=== PATIENT | female | born 1955 | race Caucasian/White ===

== ENCOUNTER 2022-05-04 15:07 | Outpatient (RCR) | payer MEDICARE, SELFPAY ==
--- NOTE | 2022-05-04 14:09 | PTOPEVAL1 ---
Evaluation Information Assessment Status Evaluation Diagnosis abnormal gait Onset 04/19/22 Subjective Information patient reports she is falling a lot. she reports she has been falling for about 2 years, but reports she is falling more frequently now. she reports she is fearful of falling and breaking her hip. she reports she is unsure why she is falling . she reports she does not feel off balance, but she does just fall when walking or standing. she reports she has been dragging the toe of the R foot for 2 years or more. she reports she has had an nerve conduction test, xrays, and she reports she is going to have MRI of the brain in the next few weeks. 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 Reported Pain Level Pain Score 0: Self Report Assessment PT Clinical Summary mrs. major is a 66 yo woman who presents to skilled PT services for evaluation and treatment of abnormal gait and frequent falls. she presents this date with signs and symptoms of tethered cord or other neurological related injury. she would do well to attend skilled PT to work on her balance, strength, ambulation, safety, and coordination to return to prior level safeyt and independence. Plan of Care Interventions Gait Training,Neuro Re-education,Patient/Caregiver Educati,Therapeutic Activities,Therapeutic Exercise PT Services Indicated Yes Treatment Frequency and 3x weekly for 12 visits Duration These treatments will address the objective and functional deficits as defined above. The patient will be advanced safely and appropriately in order for the patient to progress towards his/her prior level of function. Additional exercises will be introduced and as well as a comprehensive home exercise program upon discharge, if needed, ?to ensure carryover of functional gains achieved in the clinic. This treatment plan has been reviewed and agreement upon by the patient.
--- NOTE | 2022-05-24 10:37 | PTOPPROG ---
Assessment and note entered by JT File, PT Evaluation Information Assessment Status Progress Diagnosis abnormal gait Onset 04/19/22 Subjective Information patient reports she has had no falls for 2 weeks, but reports she is not fall free since beginning therapy. she reports she has recently found out she has a bleed in her brain, but reports she has a follow up with her MD to address/speak about this issue. currently her therapy is ok to continue. Assessment PT Clinical Summary mrs. major presents to skilled PT for her 10th skilled therapy visit this date. she presents with improved safety during ambulation using a FWW. however, she continues to ambulate with signifcant toe drag/poor foot clearance. she also rpesents with mild imprvement in 5x sit to stand time, but decrease in TUG time (used cane last test). she does display improved tinetti score for balance. she would do well to continue skilled PT 1x this week and then 2x weekly for 6 more visits. she would do well to consider AFO's for her ankles to increase ambulation safety and gait mechanics. Plan of Care Interventions Gait Training,Neuro Re-education,Therapeutic Activities,Therapeutic Exercise PT Services Indicated Yes Treatment Frequency and 1x more this week, then 2x weekly for 6 visits Duration beginning next week (7 more total visits) These treatments will address the objective and functional deficits as defined above. The patient will be advanced safely and appropriately in order for the patient to progress towards his/her prior level of function. Additional exercises will be introduced and as well as a comprehensive home exercise program upon discharge, if needed, ?to ensure carryover of functional gains achieved in the clinic. This treatment plan has been reviewed and agreement upon by the patient.
--- NOTE | 2022-06-17 11:45 | PTOPPROG ---
Assessment and note entered by JT File, PT Evaluation Information Assessment Status Progress Diagnosis abnormal gait Onset 04/19/22 Subjective Information patient reports she fell yesterday. she reports she was standing in the hallway and fell to the floor. she reports she was not using her walking in the home. patient is hesitant to the idea of bilateral AFO's. she was educated on the benefits of braces several times and does not want to commit to wearing them all the time or for a long period of time at this time. she reports she would like to think about it more. she reports she has not yet had her consultation on her brain bleed. she reports she is awaiting consultation on . Assessment PT Clinical Summary mrs. major presents to skilled PT services for her 17th skilled PT visit. she had a fall yesterday and continues to display deficits in safety, ambulation, and balance. despite these continued deficits and lack of progress towards goals, she will be put on hold from skilled PT at this time. she has a follow up with MD regarding a potential need for surgery on a bleed in her brain. she also has additional questions regarding braces that she would like to ask her surgeon. as of this date she is hesistant about braces and does not want to move forward on them, despite education on several visits form this therapist. she will follow up with PT after her surgeon visit on 06/28. Plan of Care Treatment Frequency and hold therapy until post follow up and guidance Duration from surgeon on 06/28/22 These treatments will address the objective and functional deficits as defined above. The patient will be advanced safely and appropriately in order for the patient to progress towards his/her prior level of function. Additional exercises will be introduced and as well as a comprehensive home exercise program upon discharge, if needed, ?to ensure carryover of functional gains achieved in the clinic. This treatment plan has been reviewed and agreement upon by the patient.
== END 2022-06-17 23:59 | disposition home or self-care (01) ==
LOC: CHSPT 15:07
DX: R26.9 Unspecified abnormalities of gait and mobility (principal)
CPT/HCPCS: 97110; 97112; 97161; 97530

== ENCOUNTER 2022-09-23 09:21 | Outpatient (RCR) | payer MEDICARE, SELFPAY ==
--- NOTE | 2022-09-23 10:14 | OTOPEVDC ---
Assessment and note entered by Radha Aleman, OT Thank you for referring Faviola Hampton to [facility].? An evaluation has been completed. No further treatment is needed. Evaluation Information Assessment Status Evaluation Diagnosis Hydrocephalus Onset 09/07/2022 Reported Pain Level Pain Score 2: Self Report Assessment OT Clinical Summary The patient is a 67 year old female who was referred to outpatient OT due to debility and hydrocephalus. 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 The patient demonstrates WFL UE strength with 5/5 muscle strength and good endurance for UE, minimally below average for fine motor coordination where patient reports she has never been coordinated and is given HEP, WFL dental assistant instructor/pinch strength and is independent with ADLs. The patient does not require skilled OT due to no significant change in UE strength, coordination, and endurance. The patient is discharged with UE HEP to maintain strength and improve fine motor coordination at home. The patient demonstrates good understanding of HEP. Plan of Care OT Services Indicated No
--- NOTE | 2022-09-30 14:09 | PTOPEVAL1 ---
Assessment and note entered by Monique London DPT Evaluation Information Assessment Status Evaluation Diagnosis s/p shunt placement on 09/07/22 Onset 09/27/22 Subjective Information Patient reports she had surgery on 09/07/[address] a shunt due to hydrocehpalus. She reports she has noticed an improvement in balance and has not had any falls. She reports she is no longer using the walker except for long distances. She reports that her walking is not how she wants it but she has noticed an improvement. Pt reports that she feels that right side is weaker. She reports she has some exercise equipment at home. She denies pain. She has follow up with anna on 10/04/22. Reported Pain Level Pain Score 0: Self Report Assessment PT Clinical Summary Patient is a 67 year old female who presents to PT s/p shunt placement due to hydrocephalus. She demonstrates decreased LE strength, impaired balance and decreased balance impairing her ability to complete house hold chores. She would benefit from skilled PT to address impairments and return to PLOF. Plan of Care Interventions Gait Training,Hot Pack/Cold Pack,Manual Therapy, Neuro Re-education,Patient/Caregiver Educati, Therapeutic Activities,Therapeutic Exercise,Self- Care/Home Management PT Services Indicated Yes Treatment Frequency and 2x weekly for 10 visits Duration These treatments will address the objective and functional deficits as defined above. The patient will be advanced safely and appropriately in order for the patient to progress towards his/her prior level of function. Additional exercises will be introduced and as well as a comprehensive home exercise program upon discharge, if needed, ?to ensure carryover of functional gains achieved in the clinic. This treatment plan has been reviewed and agreement upon by the patient.
--- NOTE | 2022-11-08 10:40 | PTOPDC ---
Assessment and note entered by Monique London DPT Evaluation Information Assessment Status Re-evaluation Diagnosis weakness, gait impairments Onset 09/27/22 Subjective Information Patient reports that her balance is a little better and her walking is a lot better . She does report she has fallen in the past week but she reports she did not have her cane or walker with her. She denies any recent pain. She reports she would like to complete her POC today and DC. Reported Pain Level Pain Score 0: Self Report Assessment PT Clinical Summary Patient was seen for 10 visits from 09/30/22-11/08/22 addressing gait and balance. Patient did make limited progress with balance testing and strengthening but continues to present as a high fall risk. She has been educated on use of FWW for home and community use but continues to only use FWW in the community despite max encouragement. She reports independence with HEP and with be discharged at this time. Plan of Care PT Services Indicated No Treatment Frequency and DC to independent HEP Duration
== END 2022-11-08 13:43 | disposition home or self-care (01) ==
LOC: CHSOT 09:21
DX: R53.81 Other malaise (principal); G91.9 Hydrocephalus, unspecified; Z98.2 Presence of cerebrospinal fluid drainage device
CPT/HCPCS: 97110; 97112; 97116; 97161; 97165; 97530; 97750

== ENCOUNTER 2022-10-13 10:48 | Emergency (ER) | payer MEDICARE, SELFPAY ==
--- NOTE | ~2022-10-13 | CT_ITS ---
EXAMINATION: CT brain wo con INDICATION: Right-sided head pain, recent shunt placement COMPARISON: None TECHNIQUE: Standard unenhanced head CT. The dose-length product (DLP) was 605.33 mGy-cm. The mA was a djusted according to patient size. Iterative reconstruction technique was employed. FINDINGS: There is no acute intraparenchymal hemorrhage. No evidence of mass lesion. No evidence of a cute infarction. There is mild periventricular and subcortical hypodensity probably related to small vessel ischemic disease. There is marked prominence of the ventricles. A ventricular shunt enters the right lateral ventricle posteriorly through the right parietal lobe and ends with its tip in the ant erior horn right lateral ventricle. There are no extra-axial collections. There is no mass effect or midline shift. The orbits and soft tissues are unremarkable. The visualized sinuses and mastoid air c ells are well aerated. IMPRESSION: 1. Hydrocephalus with ventricular shunt in the right lateral ventricle. Reviewed, dictated and finalized at location [address]. [facility] MAG[facility]RATE
--- NOTE | ~2022-10-13 | CT_ITS ---
EXAMINATION: CT abdomen pelvis wo con DATE: 10/13/2022 11:49 INDICATION: Acute left-sided abdominal pain TECHNIQUE: Computed tomography (CT) of the abdomen and pelvis was performed without intravenous contr ast. Automated exposure control and iterative reconstruction technique were employed. The dose-length product was 288.96 mGy-cm. COMPARISON: None FINDINGS: Mild atelectasis at the lingula and right middle lobe. Heart size is normal. No pericardial or pleura l effusion. Small sliding-type hiatal hernia. A few small low-attenuation hepatic cysts with smooth w ell-defined margins, the largest measuring 2.3 cm in the right hepatic lobe. Gallbladder, spleen, narayanan creas and bilateral adrenal glands are normal. Bilateral low-attenuation renal cysts measuring up to 1.7 cm in the right kidney and 12 mm in the left kidney. Bladder is distended. Uterus and bilateral a dnexa are unremarkable. No abnormal bowel wall thickening or obstruction. Likely ventriculoperitoneal shunt extending from the lower thoracic anterior chest wall into the right lower quadrant of the abd omen, extending across midline to the left lower quadrant with distal tip in the left upper quadrant. No free intraperitoneal gas or fluid. No pathologically enlarged abdominal or pelvic lymphadenopathy . Mild to moderate thoracolumbar spondylosis. IMPRESSION: 1. No acute intra-abdominal/pelvic process. 2. Distal tip of a ventriculoperitoneal shunt in the left upper quadrant. 3. Nonspecific prominent fluid distention of the bladder. Reviewed, dictated and finalized at location D. [facility]
[2022-10-13 10:48] VITALS: BP 164/89; PULSE 80; RESP 20; TEMP 37.4; O2SAT 98
--- NOTE | 2022-10-13 12:04 | ED.ABDPAIN ---
HPI - Abdominal Pain General Chief Complaint: Abdominal Pain Stated Complaint: hip apin Time Seen by Provider: 10/13/22 10:59 Source: patient Mode of arrival: ambulatory Limitations: no limitations History of Present Illness HPI narrative: this is a 67-year-old female that presents with a a dull headache and some intermittent abdominal discomfort with no nausea vomiting no fever chills no diarrhea constipation. Headache is slight in mild and was seen in physical therapy after she had a shunt placed proximally 2 to 3 weeks ago otherwise no blurry vision no nausea vomiting no fever chills has good range of motion in her neck no known injuries. The patient was brought over by Physical therapy with complaints of mild abdominal discomfort and mild headache that started while she was performing physical therapy. MD elicited complaint: abdominal pain Onset (ago): hour(s) Pain Consistency: intermittent Related Data Home Medications Medication Instructions Recorded Confirmed No Home Medications 09/15/22 10/13/22 Allergies Allergy/AdvReac Type Severity Reaction Status Date / Time No Known Allergies Verified 07/13/10 07:48 Review of Systems Review of Systems: All systems reviewed & are unremarkable except as noted in HPI and below PMFSH Past Medical History Medical History Cerebral palsy Flaccid neuropathic bladder, not elsewhere classified Hydrocephalus Hypertension Surgical History Surgical History S/P VE TEACHER shunt Social History Social History Smoking status: Former smoker Tobacco type: cigarettes Second hand tobacco smoke exposure: No Exam Const: General: healthy appearing Nutritional Appearance: well nourished Orientation/consciousness: patient oriented x3 Limitations: no limitations HENMT: Head: normal to inspection Ears: external ears normal Face/Nose/Sinus: Normal external nose present Face and sinus: normal facial exam Mouth: Yes Normal oral and palatal mucosa present Throat: posterior oropharynx normal Eyes: Conjunctivae: conjunctivae normal Pupils: Equal, round and reactive pupils present EOM: EOMs intact bilaterally Neck: Neck: normal visual inspection, no lymphadenopathy and no meningeal signs Chest: Chest palpation & inspection: normal inspection of the chest Resp: Effort & Inspection: normal respiratory effort Auscultation: clear to auscultation bilaterally Cardio: Rate: regular rate Rhythm: regular rhythm GI: GI Palp: Yes Soft to palpation Auscultation: normal bowel sounds : General: Yes bladder normal to palpation Urinary Catheter: Urinary Catheter: patent and draining Back/Spine/Pelvis: Back: no CVA tenderness Skin: General skin exam: normal color Rashes: no rashes Wounds: no wounds Neuro: General: patient oriented x3, moves all extremities, no meningeal signs and no focal motor deficits Extrem: General: normal to inspection, no clubbing, cyanosis or edema and no pedal edema Psych: Mental Status: mental status grossly normal Affect: normal affect Attitude: cooperative Course Course Emergency Course: CT scan of brain and abdomen reviewed with patient and family which shows no acute abnormalities. Vital Signs Vital signs: Vital Signs Temperature 37.4 C 10/13/22 10:48 Pulse Rate 80 10/13/22 10:48 Respiratory Rate 20 10/13/22 10:48 Blood Pressure 164/89 H 10/13/22 10:48 Pulse Oximetry 98 10/13/22 10:48 Oxygen Delivery Room Air 10/13/22 10:48 Temperature 37.4 C 10/13/22 10:48 Pulse Rate 80 10/13/22 10:48 Respiratory Rate 20 10/13/22 10:48 Blood Pressure 164/89 H 10/13/22 10:48 Pulse Oximetry 98 10/13/22 10:48 Oxygen Delivery Room Air 10/13/22 10:48 MDM - Abdominal Pain Imaging Data Radiologist's impression: ITS Impressions Head CT
[2022-10-13 12:11] VITALS: BP 140/66; PULSE 70; RESP 20; TEMP 37.1; O2SAT 97
== END 2022-10-13 12:15 | disposition home or self-care (01) ==
PROVIDERS: Emergency Provider Emergency Medicine
DX: R10.9 Unspecified abdominal pain (principal); R51.9 Headache, unspecified; G80.9 Cerebral palsy, unspecified; I10 Essential (primary) hypertension; Z87.891 Personal history of nicotine dependence; Z98.2 Presence of cerebrospinal fluid drainage device
CPT/HCPCS: 70450; 74176; 99284

== ENCOUNTER 2024-10-28 13:24 | Outpatient (CLI) | payer MEDICARE, SELFPAY | END 2024-10-28 13:25 | disposition home or self-care (01) | LOC: CHSIMG 13:26 | PROVIDERS: PCP Family Medicine; Visit Provider Family Medicine | DX: Z12.31 Encounter for screening mammogram for malignant neoplasm of breast (principal); R92.8 Other abnormal and inconclusive findings on diagnostic imaging of breast | CPT/HCPCS: 77063; 77067 ==

== ENCOUNTER 2024-12-17 09:20 | Outpatient (CLI) | payer MEDICARE, OTHER, SELFPAY ==
--- NOTE | ~2024-12-17 | MMUS_ITS ---
EXAMINATION: MM diagnostic vera RT w fuentes, US breast RT limited HISTORY: Follow-up right breast asymmetry TECHNIQUE: Additional 3-D tomosynthesis images of the right breast were performed and synthetic 2-D i mages were generated. CAD analysis was submitted and interpreted. High resolution Limited right breas t ultrasound was performed. COMPARISON: 10/28/2024 BREAST PARENCHYMAL COMPOSITION: Not dense: There are scattered areas of fibroglandular density. FINDINGS: MAMMOGRAPHIC FINDINGS: The asymmetry laterally in the right breast on CC view is not visualized with spot compression view. There are no suspicious masses, calcifications or architectural distortion. ULTRASOUND: Limited right breast ultrasound: There are no suspicious masses, cysts or other abnormality to sugges t malignancy. IMPRESSION: 1. No evidence for malignancy in the right breast. 2. Routine yearly screening mammogram and regular clinical breast examination are recommended. BI-RADS Category 1: Negative Reviewed, dictated and finalized at location A. IMPRESSION: 1. No evidence for malignancy in the right breast. 2. Routine yearly screening mammogram and regular clinical breast examination a re recommended. BI-RADS Category 1: Negative
--- OUTSIDE RECORDS SUMMARY | 2024-12-17 10:21 | XMS_ITS | Encounter Summary ---
Author Organization [facility] Health Address [address] [place] [address] Care Team Providers Care Unix System Administrator Name Role Phone Domingo Hebert MD Primary Care Provider [phone] Encounter Details Date Type Department Care Team (Late st Contact Info) Description 09/09/2024 Telephone [facility] - Family Medicine [address] [place] [address], [facility] [place] [id number] Domingo Hebert MD [address] [place] [address] [place] [id number] Social History Tobacco Use Types Packs/Day Years Used Date Smoking Tobacco: Former Cigarettes Smokeless Tobacco: Never Alcohol Use Standard Drinks/Week Comments No 0 (1 standard drink = 0.6 oz pur e alcohol) PHQ-2 Answer Date Recorded Patient Health Questionnaire-2 Score 0 08/16/2024 Comments No Sex and Gender Information Value Date Recorded Sex Assigned at Not on file Legal Sex Female 5:30 PM 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 Domingo Hebert Reason for Call: Mr. Dylan Hampton was returning a call from the office for his , Faviola Hampton. He was unsure of message and I did not see anything in her chart. Please call on his phone, . After looking at his chart and asking him a question, he says he has three referrals from Dr. Hebert from the 08/16/24 appt so they can be done on the [place] side. Maybe no reason to call, referrals were mailed to him. Thanks. Patient Call Back Number: [phone] TOR SERVICES COORDINATOR documented in this encounter Plan of Treatment Not on file documented as of this encounter Visit Diagnoses Not on filedocumented in this encounter Care Teams Unix System Administrator Relationship Specialty Start Date End Date Domingo Hebert MD PCP - General 05/28/19 documented as of this encounter
--- OUTSIDE RECORDS SUMMARY | 2024-12-17 10:21 | XMS_ITS | Data Portability ---
Author Organization [facility] [place] Address [address] [place] [address] Care Team Providers Care Clarity Specialists Name Role Phone YAAKOV OSULLIVAN Primary Care Provider [phone] Assessment Encounter Date Assessment Date Assessment LastModified by Organization Details LastModified Time 07/13/2020 07/13/2020 Annual gynecological exam performed. Patient will come back in a year unless there are new symptoms. [email or web address] Not available 07/13/2020 11:16:39 02/03/2022 02/03/2022 Annual gynecological exam performed. Patient will come back in a year unless there are new symptoms. Not available 02/03/2022 10:46:39 Plan of Treatment Reminders Order Date Submit Date Provider Last Modified By Organization Details Last Modified Time Details Appointments None recorded. Lab None recorded. Referral None recorded. Procedures None recorded. Surgeries None recorded. Imaging DEXA, axial skeleton + vertebral fracture assessment 2021 022 [email or web address] [facility], [address] [place] [address] [place], [address], 12:37:05 Medication Orders None recorded. Patient TargetsNo targets recorded. Patient InstructionsNo instructions recorded. Reason for Referral None Reported. Results Created Date Observation Date Name Description Value Unit Range Abnormal Flag Note LastModifiedBy Organization Detail LastModifiedTime 07/13/2007/16/2020 pap, LB Pap test thin prep Negati ve for Intrae pithel ial Lesion or Malign carroll normal ACCES JOAN #: [id number] Sourc e: Cervi krissy/E ndoce rvica l LMP: 08/28 Date Taken : 07/13 Speci men Type: ThinP rep Vial Date Repor terri: 07/16 Clini krissy Data: Cytot ech: Maira in Judy Deleon , CT( CP) Date Repor terri: 07/14 Speci men Adequ acy: Satis facto ry for evalu ation Gener al Categ oriza tion: NEGAT MARYANNE FOR INTRA EPITH ELIAL LESIO N OR MALIG NORAH Inter preta tion/ Resul t: Atrop hy This speci men has been neha zed by the ThinP rep Imagi ng Syste m, an inter activ e compu ter syste m which sheyla ts the lab in the scree mariya of ThinP rep Pap Test slide s. Follo wing imagi ng, the slide was revie wed by a Cytot pratibhano logis t and/o r Patho logis t. D N A A S S A Y S R E P O R T TEST NAME RESUL TS ----- ---- ----- -- HPV High Risk Scree n (TMA) ThinP rep Vial The human papil lomav irus (HPV) High Risk Scree n is an FDA-a pprov ed in-vi tro ampli fied nucle ic acid test for the quali tativ e detec tion of E6/E7 viral mRNA. Resul ts shoul d be corre lated with patie nt prese ntati on, histo ry, cervi krissy cytol ogy and other clini krissy and labor atory findi ngs. See https ://[employer]/s ites/ defau lt/fi les/2 018-0 3/AW- 33074 _002_ 01.pd f for furth er infor matceleste n. Test perfo rmed by [facility], d/b/a Talon smith, [address], [place] [address] , Emiliana White ra, DO, Labor atory Dire tor. HPV High Risk *HPV NOT DETEC TERRI (TYPE S 16, 18, 31, 33, 35, 39, 45, 51, 52, 56, 58, 59, 66, 68) *HPV: The human papil lomav irus (HPV) High Risk Aurora garcia is an FDA-a pprov ed in-vi tro ampli fied nucle ic acid test for the quali tativ e detec tion of E6/E7 viral mRNA. Resul ts shoul d be corre lated with patie nt prese ntati on, histo ry, cervi krissy cytol ogy and other clini krissy and labor atory findi ngs. See https ://[employer]/s ites/ defau lt/fi les/2 018-0 3/AW- 35054 _002_ 01.pd f for furanders er infor saturninoceleste n. Test perfo rmed by [facility], d/b/a [facility], [address], [place] [address] , Emiliana White ra, DO, Labor atorGreenSand Direc tor. End of Repor t Techn ical servi lucy provi ded by [facility], d/b/[facility], [address] [place] [address] Dnaial Collins MD, [facility] kSARIA Dire tor. Case revie wed and diagn osis rende red at [facility], d/b/[facility], [address] [place] [address] Danial Clolins MD, Labor kSARIA Dire tor. CONFI DENTI AL Not Available [facility] ([facility]) [address], [place], [address], 2020 08:34:40 07/13/20 20 2020 HPV DNA, high- risk HPV high risk NOT DETECT ED normal Not Available [facility] ([employer] [facility]) [address], [place], [address], 2020 08:34:41 07/29/20 20 07/29/2020 MAMMO , scree mariya, bilat eral No observ ation record ed. [facility] [address] [place], [address], 08/02/2020 20:32:36 Result Notes None recorded. 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 2 17:34:36 Feeling irritable [id number] Completed 201002/02/2022 IRRITABIL ITY;Pract ice ID: [id number] [facility] 2 17:34:36 Problem Notes None recorded. Procedures Surgical History Date Name Laterality Status Provider Name and Address Organization Details Recorded Time 0 Date of Last Mammogram completed [facility] 02/03/2022 10:48:42 0 Date of Last Pap Smear completed [facility] 02/03/2022 10:48:14 Imaging Results Imaging Date Name Status LastModified by Organiz ation Details LastModified Time 07/29/2020 MAMMO, screening, bilateral completed [facility] [address] [place], [address], 08/02/2020 20:32:36 Procedure Notes None recorded. Medical Equipment None Reported. Allergies No known drug allergies Medications Name Sig Start Date Stop Date Status Note LastModified by Organization Details LastModified Time hydrochlo rothiazid e 12.5 mg capsule take 2 capsule by oral route every day 01/23 completed Prescrib ed Elsewher e: Yes Loca tion: [facility] M odify By: dmrose E ncounter DateTime : 06/13/20 11 06:48:39 PM Not Available Not Available Not Available Wellbutri n XL 150 mg 24 hr tablet, extended release take 1 tablet (150MG) by oral route every day 01/23 completed Prescrib ed Elsewher e: No Locat ion: [facility] odify By: mervin Coleman ncounter DateTime : 06/13/20 11 06:48:39 PM Not Available Not Available Not Available baclofen 02/03 completed Not Available Not Available Not Available levetirac etam 1,000 mg tablet active Not Available Not Available Not Available baclofen 5 mg tablet take 1 tablet by oral route 3 times every day 02/03 completed Prescrib ed Elsewher e: Yes Loca tion: [facility] odify By: mervin Coleman ncounter DateTime : 01/24/20 19 01:00:00 PM Not Available Not Available Not Available Fluzone Quad (PF) 60 mcg (15 mcg x 4)/0.5 mL IM syringe ADM 0.5ML IM UTD 02/03 completed Not Available Not Available Not Available Vitals Date Recorded Body height Body mass index (BMI) Body weight Systolic blood pressure Diastolic blood pressure Provider Name and Address Organization Details Last Updated DateTime 02/03/2022 149.86 cm 27.3 kg/m2 38136.97 g 126 mm[Hg] 70 mm[Hg] Chinyere Brian [facility] 2 10:47:44 Date Recorded Body height Body mass index (BMI) Body weight Provider Name and Address Organization Details Last Updated DateTime 07/13/2020 152.4 cm 25.8 kg/m2 05160.19 g Lorri Trevizo [facility] 07/13/2020 11:27:38 Date Recorded Systolic blood pressure Diastolic blood pressure Provider Name and Address Organization Details Last Updated DateTime 07/13/2020 144 mm[Hg] 76 mm[Hg] Brenda Weber, [facility]- [address], [place], [address], [facility] 07/13/2020 11:41:00 Social History Question Answer Notes LastModified by Organizat ion Details LastModified Time Tobacco Smoking Status Never Smoker Cihnyere Brian [facility] 02/03/2022 10:51:50 What Is Your Level Of Alcohol Consumption? Occasional Information not available 02/03/2022 Are You Blind Or Do You Have Difficulty Seeing? No Information n ot available 02/03/2022 What Is Your Level Of Caffeine Consumption? Occasional Information not available 02/03/2022 In The 14 Days Before Symptom Onset, Have You Had Close Contact With A Laboratory-confirm ed COVID-19 While That Case Was Ill? No Information n ot available 03/19/2024 In The 14 Days Before Symptom Onset, Have You Had Close Contact With A Person Who Is Under Investigation For COVID-19 While That Person Was Ill? No Information not available 03/19/2024 Have You Been To An Area Known To Be High Risk For COVID-19? No Information not available 03/19/2024 Are You Deaf Or Do You Have Serious Difficulty Hearing? No Information not available 02/03/2022 What Type Of Diet Are You Following? REGULAR Information n ot available 02/03/2022 Do You Use Your Seat Belt Or Car Seat Routinely? Yes Information not available 02/03/2022 Do You Have Smoke And Carbon Monoxide Detectors In Your Home? Yes Information not available 02/03/2022 Do You Feel Stressed (tense, Restless, Nervous, Or Anxious, Or Unable To Sleep At Night)? [id number] Information not available 02/03/2022 Do You Use Any Illicit Or Recreational Drugs? No Information not available 02/03/2022 Do You Use Sunscreen Routinely? Yes Information not available 02/03/2022 Sex: Unknown Functional Status Question Answer Note LastModified by Organizat ion Details LastModified Time Do you have difficulty walking or climbing stairs? No Information not available 02/03/2022 Are you able to walk? YESWOREST Information not available 02/03/2022 Are you able to care for yourself? Yes Information not available 02/03/2022 Do you have difficulty dressing or bathing? No Information not available 02/03/2022 What is your exercise level? Occasional Information not available 02/03/2022 Mental Status None recorded. Family History Relationship Description Onset Age of this Age Resolved Age Notes LastModified by Organization Details LastModified Time Father Leukemia Not available 0 02/03/2022 10:51:00 Maternal Grandfather Leukemia Not available 02/03 10:51:06 Mother Hypertensive disorder Not available 2021 10:51:16 Sister Hypertensive disorder Not available 2021 10:51:16 Medical History Condition Response Neurologic/Epilepsy Y Gynecological History Statement/Question Response Abnormal Pap Yes Date of Last Mammogram 07/29/2020 On BCP's at Conception? N STIs/STDs N HPV Vaccine N Colposcopy Current Control Method Menopause If Post Menopausal, Age at Menopause 50 Sexually Active? N Age of first menstrual cycle 13 Date of Last Pap Smear 07/13/2020 Sexual Problems? N LMP Approximate Obstetrics History GPAL:G 3 P 0 0 0 3 Type Value Living 3 Total 3 Past Encounters Encounter ID Performer Location Encounter Start Date Encounter Closed Date Diagnosis/Indication Diagnosis SNOMED-CT Code Diagnosis ICD10 Code Diagnosis Note [id number] [facility] [address] [address] 07/13/2020 11:13:20 07/13/2020 13:39:16 Gynecologic examination 38308624 Z01.419 Take Calcium with Vitamin D 12-1500mg daily. Do monthly self breast exams. It is advised to get annual flu shot in the fall and she could obtain at [facility] or [facility] clinic. If you haven't received the Tdap vaccine in the last 10 years you should obtain one as well. Have mammogram yearly, bone density every 2-3 years and colonoscop y every 5-10 years depending on findings and history. Engage in daily exercise of low impact aerobic exercise 45-60 minutes 4-5 times weekly. Avoid tobacco and illicit drugs as well as using moderation with alcohol intake less than 1-2 8 oz beverages daily. This lifestyle behavior pattern will lead to less health conditions and longer life span. If BMI greater than 25 weight watchers or dietary consult advised. Questions have been answered. Patient appears to understand instructio ns, but if you have any further questions call or respond to this email Pap/hpv updated Reports wnl pap/hpv hx Monogamous x 41yrs Declines std screening Mammo ordered Reports UTD colonoscop y/dexa with PCP If pap/hpv this year is wnl consider d/c pap/hpv unless otherwise indicated. USPSTF recommends against screening for cervical cancer in women older than 65yo who have had adequate prior screening & are not otherwise at high risk for cervical cancer. Requested she contact her PCP for asymptomat ic elevated BP. [id number] Brenda Weber , [facility] [address] [address] 02/03/2022 10:13:11 02/03/2022 12:02:36 Gynecologic examination 49621594 Z01.419 Take Calcium with Vitamin D 12-1500mg daily. Do monthly self breast exams. It is advised to get annual flu shot in the fall and she could obtain at [facility] or [facility] care clinic. If you haven't received the Tdap vaccine in the last 10 years you should obtain one as well. Have mammogram yearly, bone density every 2-3 years and colonoscop y every 5-10 years depending on findings and history. Engage in daily exercise of low impact aerobic exercise 45-60 minutes 4-5 times weekly. Avoid tobacco and illicit drugs as well as using moderation with alcohol intake less than 1-2 8 oz beverages daily. This lifestyle behavior pattern will lead to less health conditions and longer life span. If BMI greater than 25 weight watchers or dietary consult advised. Questions have been answered. Patient appears to understand instructio ns, but if you have any further questions call or respond to this email Pap/hpv USPSTF recommends against screening for cervical cancer in women older than 65yo, those who've had a hysterecto my for non-cancer indication s, & who have had adequate prior screening & are not otherwise at high risk for cervical cancer. STD Screen declined Genetic Screen discussed declined Colon Screen UTD PCP Dexa Screen Ordered Routine Labs UTD PCPMammo ordered Postmenopa usal osteopenia [id number] M85.80 Health Concerns Section Related Observation LastModified by Organization Detai ls LastModified Time None Recorded Concern Status LastModified by Organization Details LastModified Time None Recorded Advance Directives Directive None Recorded Payers Encounter Date Sequence Insurance Name Policy Number Policy Peng Covered Member ID Peng Member ID Guarantor Name 07/13/2020 1 [place] Faviola Hampton [id number] 07/13/2020 2 [employer] - [place] - [place]ERS & PIPEFITTERS LOCAL [id number] (PPO) [id number] Faviola Hampton [id number] 02/03/2022 1 [place] Favioal Hampton [id number] 02/03/2022 2 [employer] - [place] - [employer]UM[employer]ERS & PIPEFITTERS LOCAL 421 (PPO) [id number] Faviola Hampton [id number] Notes Date Note Type Note Provider Name and Address Organization Details Recorded Time 07/13/2020 text/html Annual GYNReport ed bypatient.History: no gynecologic complaints Menstrual cycle:postmenopaus e Urinary symptoms:No hematuria; No incontinence Vulva:No genital lesion Vagina:Normal vaginal discharge Breast:No breast pain; No breast lump; No nipple discharge Current Contraception:Candler gamous relationship; Not sexually active; x 41yrs Sexual complaints:No sexual complaints; No pain during intercourse; Normal libido Menopausal Symptoms:No menopausal symptoms; Normal vaginal lubrication Psychological symptoms:No depression; No anxiety; No PMDD Preventive measures:Encourage self breast examination; Encourage regular exercise; Encourage no tobacco use; Encourage regular mammograms starting age 40; Needs to schedule mammogram; Up to date on colonoscopy screening; Dexa per PCP Brenda Weber DARIELA- [address], [place], [address], [facility] 07/13/2020 11:42:08 02/03/2022 text/html Annual Layer Up Post-MenopausalRep orted bypatient.Menopaus al Symptoms:no menopausal symptoms; normal vaginal lubrication Vaginal Bleeding:history of menopause having occurred; no history of post menopausal bleeding Urinary Symptoms:no hematuria; no incontinence; no nocturia; no urinary frequency Vulva:no genital lesion; no vulvar atrophy Vagina:normal vaginal discharge; no vaginal atrophy Breast:no breast lump; no nipple discharge; no breast pain Sexual Complaints:no sexual complaints Psychological Symptoms:no depression; no anxiety Preventive Measures:encourage regular mammograms starting age 40; encourage self breast examination; encourage regular exercise; encourage no tobacco use; mammogram performed within the past year; history of recent colonoscopy; needs to schedule bone density LORNA Santana- [address], [place], [address], [facility] 02/03/2022 11:57:41 OBGyn Episode Ob Episode Information Episode Created Date Number of Fetuses Patient Bloodtype Patient rh Status Prepregnancy Weight lbs Domestic Partner Domestic Partner Phone Father Name Compensation/Benefits Specialist Status 02/04/20 22 1 CLOSED Fetus Data First Name Last Name Admitted to NICU Weight (g) Sex Living Outcome Pediatric Complications Fetus ID Race Codes Race Delivery Type [id number] Vaginal Delivery Richard Calculation Initial Richard Date Initial Exam Date Initial Exam Provider Initial Ultrasound Date Last Menstrual Period Date Ultra Sound Weeks Gestation 0 Eighteen To Twenty Week Richard Update Ultra Sound Date Fundal Height At Umbil Quickening Date Ultra Sound Latest Weeks Gestation Final Richard Confirmed By Final Richard Confirmed Date Final Richard Date Ultra Sound Latest Days Gestation 0 0 Menstrual History Last Menstrual Date Menses Monthly On Bcp Conception Prior Menses Frequency Hcg Plus Date Menarche Onset Age Delivery Information Delivery Date Delivery Type Labor Anesthesia Weeks Gestation Incision Type Labor Labor Length Hrs Delivered By Post Complications Tubal Sterilization Discharge Date Comments 7 Discharge Information Feeding Method Contraceptive Method Maternal HG B and HCT Levels Ob Episode Information Episode Created Date Number of Fetuses Patient Bloodtype Patient rh Status Prepregnancy Weight lbs Domestic Partner Domestic Partner Phone Father Name Compensation/Benefits Specialist Status 02/04/20 22 1 CLOSED Fetus Data First Name Last Name Admitted to NICU Weight (g) Sex Living Outcome Pediatric Complications Fetus ID Race Codes Race Delivery Type , Spontane ous [id number] Richard Calculation Initial Richard Date Initial Exam Date Initial Exam Provider Initial Ultrasound Date Last Menstrual Period Date Ultra Sound Weeks Gestation 0 Eighteen To Twenty Week Richard Update Ultra Sound Date Fundal Height At Umbil Quickening Date Ultra Sound Latest Weeks Gestation Final Richard Confirmed By Final Richard Confirmed Date Final Richard Date Ultra Sound Latest Days Gestation 0 0 Menstrual History Last Menstrual Date Menses Monthly On Bcp Conception Prior Menses Frequency Hcg Plus Date Menarche Onset Age Delivery Information Delivery Date Delivery Type Labor Anesthesia Weeks Gestation Incision Type Labor Labor Length Hrs Delivered By Post Complications Tubal Sterilization Discharge Date Comments 5 Discharge Information Feeding Method Contraceptive Method Maternal HG B and HCT Levels Ob Episode Information Episode Created Date Number of Fetuses Patient Bloodtype Patient rh Status Prepregnancy Weight lbs Domestic Partner Domestic Partner Phone Father Name Compensation/Benefits Specialist Status 02/04/20 22 1 CLOSED Fetus Data First Name Last Name Admitted to NICU Weight (g) Sex Living Outcome Pediatric Complications Fetus ID Race Codes Race Delivery Type F [id number] Vaginal Delivery Richard Calculation Initial Richard Date Initial Exam Date Initial Exam Provider Initial Ultrasound Date Last Menstrual Period Date Ultra Sound Weeks Gestation 0 Eighteen To Twenty Week Richard Update Ultra Sound Date Fundal Height At Umbil Quickening Date Ultra Sound Latest Weeks Gestation Final Richard Confirmed By Final Richard Confirmed Date Final Richard Date Ultra Sound Latest Days Gestation 0 0 Menstrual History Last Menstrual Date Menses Monthly On Bcp Conception Prior Menses Frequency Hcg Plus Date Menarche Onset Age Delivery Information Delivery Date Delivery Type Labor Anesthesia Weeks Gestation Incision Type Labor Labor Length Hrs Delivered By Post Complications Tubal Sterilization Discharge Date Comments 9 Discharge Information Feeding Method Contraceptive Method Maternal HG B and HCT Levels
--- OUTSIDE RECORDS SUMMARY | 2024-12-17 10:21 | XMS_ITS | Encounter Summary ---
Author Organization [facility] Address [address] [place] [address] Care Team Providers Care Certified Medical Dosimetrist Name Role Phone Domingo Hebert MD Primary Care Provider [phone] Reason for Visit * Reason Onset Date Comments MEDICATION REFILL 01/07/2022 Encounter Details Date Type Department Care Team (Late st Contact Info) Description 01/07/2022 Refill [facility] [address] [place] [address] [phone] Domingo Hebert MD [address] [place] [phone] MEDICATION REFILL Social History Tobacco Use Types Packs/Day Years Used Date Smoking Tobacco: Former Cigarettes Smokeless Tobacco: Never Alcohol Use Standard Drinks/Week Comments No 0 (1 standard drink = 0.6 oz pur e alcohol) PHQ-2 Answer Date Recorded PHQ2 TOTAL SCORE 0 08/05/2021 Comments No Sex and Gender Information Value Date Recorded Sex Assigned at Not on file 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
--- OUTSIDE RECORDS SUMMARY | 2024-12-17 10:21 | XMS_ITS | Clinical Summary ---
Author Organization [facility] [employer] Address [address] [place] [address] Care Team Providers Care Police Patrol Lieutenant Name Role Phone Domingo Hebert MD Primary Care Provider [phone]- [phone] Source Comments [facility] [employer],non-owned Affiliates and Associated Physician Practices is amultiple site organization consisting of ambulatory clinics and hospital sitesin [place], [place], [place] and [place]. This disclosure is being madepursuant to the Care Everywhere program and may not contain all information available regarding this patient. Last updated 18.[facility] [employer] Allergies No known active allergies Medications * Be aware that medications may not be up to date on this document. Alwaysverify current medications with the patient. 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 [place] [phone] Domingo Hebert MD Order from Last 3 Months Immunizations Immunization Administration Dates Next Due INFLUENZA VACCINE, TRIV. (AF LURIA, FLUZONE TRIVALENT; 6MO+) (IIV3) 06/05/2013,08/04/2012,05/28/2011 Covid Moderna primary monova lent 12+ yr 0.5mL 06/26/2021,11/17/2020,10/08/2020 FLU VACCINE TRI IIV3 SPLIT PF IM (FLUVIRIN) 04/28 INFLUENZA VACCINE 06/03/2015 INFLUENZA VACCINE, ADJUVANTE D, QUADR. (FLUAD QUADRIVALENT; 65Y+) (AIIV4) 06/05/2023 INFLUENZA VACCINE, QUADR. (F LUZONE; FLULAVAL; FLUARIX; AFLURIA QUADRIVALENT; 6MO+), 0.5 ML (IIV4) 07/01/2020,06/19/2018 TDAP (7yrs+) 02/16/2017 ZOSTER VACCINE, LIVE 02/16/2017 Zoster Hzv Vacc Recombinant Inj Im 07/28/2017 iNFLUENZA VACCINE, RECOM-PATINO, QUADR. (FLUBLOCK QUADRIVALENT; 18Y+) (RIV4) 05/28/2019 Family History Medical History Relation Name Comments Aneurysm, Brain Father CVA Mother Hypertension Mother Status: d Relation Name Status Comments Father Mother Social History Tobacco Use Types Packs/Day Years Used Date Smoking Tobacco: Former Cigarettes Smokeless Tobacco: Never Tobacco Cessation:Counseling Given: Not Answered Alcohol Use Standard Drinks/Week Comments No 0 (1 standard drink = 0.6 oz pur e alcohol) PHQ-2 Answer Date Recorded Patient Health Questionnaire-2 Score 0 08/16/2024 Comments No Sex and Gender Information Value Date Recorded Sex Assigned at Not on file Legal Sex Female 5:30 PM TOMATO PULPER OPERATOR Gender Identity Not on file Sexual Orientation Not on file Last Filed Vital Signs Vital Sign Reading Time Taken Comments Blood Pressure 140/85 08/16/2024 10:37 AM TOMATO PULPER OPERATOR Pulse 89 08/16/2024 10:37 AM TOMATO PULPER OPERATOR Temperature 36.4 C (97.5 F) 06/05/2023 1:16 PM CDT Respiratory Rate - - Oxygen Saturation 98% 08/16/2024 10:37 AM TOMATO PULPER OPERATOR Inhaled Oxygen Concentration - - Weight 59.9 kg (132 lb) 08/16/2024 10:37 AM TOMATO PULPER OPERATOR Height 149.9 cm (4' 11 ) 06/05/2023 1:16 PM CDT Body Mass Index 26.66 06/05/2023 1:16 PM CDT Plan of Treatment Health Maintenance Due Date Last Done Comments BONE DENSITY TESTING 1955 COLOGUARD (AGES 45-75) - COLON CA SCREENING [address] COLONOGRAPHY - COLON CA SCREENING 1955 FIT - COLON CA SCREENING 1955 FLEX SIG - COLON CA SCREENING 1955 HEPATITIS C SCREENING 07/11/1973 PNEUMOCOCCAL VACCINE 50+ (1 of 1 - PCV) 2005 ZOSTER VACCINE (3 of 3) 09/22/2017 07/28/2017, 02/16 COLONOSCOPY - COLON CA SCREENING 04/28/2024 04/28/2014 (Done Outside Per Patient) COVID-19 VACCINE ( - 2023- season) 2024 06/26/2021, 11/17/2020, 10/08/2020 Colorectal Cancer Screening 04/28/2024 MEDICARE AWV 12 MONTHS 06/05/2024 06/05/2023 DEPRESSION SCREENING 08/28/2024 08/16/2024, 06/05/20 INFLUENZA VACCINE (Season Ended) 2025 06/05/2023, 07/01/2020, 05/28/2019, Additional history exists LIPID TESTING 08/12/2026 08/12/2021, 1008/2018, 02/16/2017, Additional history exists MAMMOGRAM 10/28/2026 10/28/2024, 09/0 08/2018 (Done Outside Per Patient) DTAP/TDAP/TD VACCINES (2 - Td or Tdap) 02/16/2027 02/16/2017 Respiratory Syncytial Virus (RSV) Vaccine Pt: or over 60 yrs (1 - 1-dose 75+ series) 2030 HEPATITIS B VACCINE Aged Out No longe r eligible based on patient's age to complete this topic HIB VACCINE Aged Out No longer eligi ble based on patient's age to complete this topic HPV VACCINE Aged Out No longer eligi ble based on patient's age to complete this topic MENINGOCOCCAL (Group B) VACCINE SHARED DECISION-MAKING Aged Out No longer eligible based on patient's age to complete this topic MENINGOCOCCAL GROUPS A/C/Y/W VACCINE Aged Out No longer eligible based on patient's age to complete this topic Procedures Procedure Name Priority Date/Time Associated Diagnosis Comments MAMMOGRAM Routine 10/28/2024 11:28 AM TOMATO PULPER OPERATOR LIPID PROFILE Routine 08/12/2021 8:27 AM TOMATO PULPER OPERATOR Memory disturbance from Last 3 Months or Most Recently Relevant to Health Maintenance Results * MAMMOGRAM (10/28/2024 11:28 AM TOMATO PULPER OPERATOR) Anatomical Region Laterality Modality Other us Historical Provider MD SCANNING ONLY Final Res ult * (ABNORMAL) LIPID PROFILE (08/12/2021 8:27 AM TOMATO PULPER OPERATOR) Cholesterol 197 <200 mg/dL [facility] HDL Cholesterol 64 > OR = 50 mg/dL [facility] Triglycerides 73 <150 mg/dL [facility] LDL Calculated 116(H) mg/dL (calc) [facility] Comment: Reference range: <100 Desirable range <100 mg/dL for primary prevention; <70 mg/dL for patients with CHD or diabetic patients with > or = 2 CHD risk factors. LDL-C is now calculated using the Kanchan calculation, which is a validated novel method providing better accuracy than the Friedewald equation in the estimation of LDL-C. Bill ORONA et al. LOY. 2013;310(19): 3571-2166 (http://education.[employer].Ligandal/faq/DGF981) CHOL/HDLC RATIO 3.1 <5.0 (calc) [facility] Non HDL Cholesterol 133(H) <130 mg/dL (calc) [facility] Comment: For patients with diabetes plus 1 major ASCVD risk factor, treating to a non-HDL-C goal of <100 mg/dL (LDL-C of <70 mg/dL) is considered a therapeutic option. Test Performed at: [facility] [address] [place] [address] STEVEN CORTEZ DO,MPH Blood BLOOD SPECIMEN / Unknown 08/12/2021 8:27 AM TOMATO PULPER OPERATOR 08/12/2021 8:29 AM TOMATO PULPER OPERATOR us Domingo Hebert MD LAB - CHEMISTRY ORDERABLES Final Result [facility] [address] [place] [address] from Last 3 Months or Most Recently Relevant to Health Maintenance Insurance MEDICARE MEDICARE Care Teams Police Patrol Lieutenant Relationship Specialty Start Date End Date Domingo Hebert MD PCP - General 05/28/19
--- OUTSIDE RECORDS SUMMARY | 2024-12-17 10:21 | XMS_ITS | Referral Summary ---
Author Organization [facility] Address [address] [address] Care Team Providers Care Horse Groomer Name Role Phone Domingo Hebert MD Primary Care Provider [phone]- [phone] Cecy Brewer PT Unavailable Unavailabl e Cecy Brewer PT Unavailable Unavailabl e Encounters Date Type Department Care Team Description 12/12/2024 9:15 AM CDT Therapy [facility] [address] [place] [phone] Patrica Alford, PROGRESSIVE CARE NURSE Cognitive communication deficit (Primary Dx); Hydrocephalus managed with CUFFER shunt (HCC) 12/12/2024 10:00 AM CDT Therapy [facility] [address] [place] [phone] Cecy Brewer, PT Gait disorder (Primary Dx) 12/09/2024 10:45 AM CDT Therapy [facility] [address] [place] [phone] Patrica Alford, PROGRESSIVE CARE NURSE Cognitive communication deficit (Primary Dx) 12/09/2024 10:00 AM CDT Therapy [facility] [address] [place] [phone] Michael, Citlalli K., LEARNING AND DEVELOPMENT INTERN Gait disorder (Primary Dx) 12/05/2024 10:00 AM CDT Therapy [facility] [address] [place] [phone] Patrica Alford, PROGRESSIVE CARE NURSE Cognitive communication deficit (Primary Dx) 12/05/2024 9:15 AM CDT Therapy [facility] [address] [place] [phone] Citlalli Michael, LEARNING AND DEVELOPMENT INTERN Gait disorder (Primary Dx) 12/02/2024 10:45 AM CDT Therapy [facility] [address] [place] [phone] Patrica Alford, PROGRESSIVE CARE NURSE Cognitive communication deficit (Primary Dx) 12/02/2024 10:00 AM CDT Therapy [facility] [address] [place] [phone] Citlalli Michael, LEARNING AND DEVELOPMENT INTERN Gait disorder (Primary Dx) 11/29/2024 11:00 AM CDT Office Visit [facility] Orthopaedic [facility] 12th [place] [address] [place] [address] Jaqui Dumont NP Gait disorder (Primary Dx); Post-traumatic hydrocephalus (HCC); Right foot drop; Impaired functional mobility, balance, gait, and endurance; Cerebral palsy with spastic diplegia (HCC); Hydrocephalus managed with CUFFER shunt (HCC) 11/28/2024 10:45 AM CDT Therapy [facility] [address] [place] [phone] Citlalli Michael, LEARNING AND DEVELOPMENT INTERN Gait disorder (Primary Dx) 11/28/2024 10:00 AM CDT Therapy [facility] [address] [place] [phone] Patrica Alford, PROGRESSIVE CARE NURSE Cognitive communication deficit (Primary Dx) 11/25/2024 10:00 AM CDT Therapy [facility] [address] [place] [phone] Citlalli Michael, LEARNING AND DEVELOPMENT INTERN Gait disorder (Primary Dx) 11/25/2024 9:15 AM CDT Therapy [facility] [address] [place] [phone] Patrica Alford, PROGRESSIVE CARE NURSE Cognitive communication deficit (Primary Dx) 11/21/2024 10:00 AM CDT Therapy [facility] [address] [place] [phone] Citlalli Michael, LEARNING AND DEVELOPMENT INTERN Gait disorder (Primary Dx) 11/21/2024 10:45 AM CDT Therapy [facility] [address] [place] [phone] Patrica Alford, PROGRESSIVE CARE NURSE Cognitive communication deficit (Primary Dx) 11/18/2024 10:00 AM CDT Therapy [facility] [address] [place] [phone] Citlalli Michael, LEARNING AND DEVELOPMENT INTERN Gait disorder (Primary Dx) 11/18/2024 9:15 AM CDT Therapy [facility] [address] [place] [phone] Patrica Alford, PROGRESSIVE CARE NURSE Cognitive communication deficit (Primary Dx) 11/07/2024 12:00 PM CDT Therapy [facility] [address] [place] [phone] Patrica Alford, PROGRESSIVE CARE NURSE Cognitive communication deficit (Primary Dx) 11/07/2024 11:00 AM CDT Therapy [facility] [address] [place] [phone] Cecy Brewer, PT Gait disorder (Primary Dx); Impaired functional mobility, balance, gait, and endurance; Hydrocephalus managed with CUFFER shunt (HCC); Cerebral palsy with spastic diplegia (HCC); Right foot drop; Post-traumatic hydrocephalus (HCC) 10/30/2024 Plan of Care Documentation [facility] [address] [place] [phone] 10/30/2024 2:00 PM [employer] Therapy [facility] [address] [place] [phone] Patrica Alford, PROGRESSIVE CARE NURSE Cognitive communication deficit (Primary Dx); Hydrocephalus managed with CUFFER shunt (HCC); Post-traumatic hydrocephalus (HCC) 10/22/2024 Telephone [facility] Gastroenterology at [address] [place] [address] Leah Campbell LPN 10/21/2024 Orders Only [facility] Orthopaedic Surgery [address] [facility] 12th [place] [address] [place] [address] Jaqui Dumont NP Post-traumatic hydrocephalus (HCC) (Primary Dx); Gait disorder; Impaired functional mobility, balance, gait, and endurance; Hydrocephalus managed with CUFFER shunt (HCC); Cerebral palsy with spastic diplegia (HCC); Right foot drop 10/18/2024 Orders Only [facility] [address] [place] [address] Danial Siddiqui PA NPH (normal pressure hydrocephalus) (HCC) (Primary Dx) 10/11/2024 2:30 PM [employer] Office Visit [facility] [address] [place] [address] Danial Siddiqui PA NPH (normal pressure hydrocephalus) (HCC) (Primary Dx) 10/11/2024 11:58 AM [employer] - 10/11/2024 11:59 PM [employer] Hospital Encounter [facility] - [facility] [address] [place] [phone] Normal pressure hydrocephalus (HCC); SDH (subdural hematoma) (HCC) Discharge Disposition: Discharge to home or self care from Last 3 Months Allergies No known active allergies Medications levETIRAcetam (KEPPRA) 1,000 mg tablet Discontinue d(Therapy completed) Active Problems Problem Noted Date Diagnosed Date Screening for colon cancer 10/22/2024 Brain lesion 03/23/2023 Hydrocephalus 08/02/2022 Memory loss 04/19/2022 Gait disorder 04/19/2022 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 Radiculopathy of lumbar region 03/24/2017 Spasticity 02/20/2017 Essential (primary) hypertension 02/11/2012 Flaccid neuropathic bladder, 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 Feeling irritable 01/03/2011 Overview (07/02/2024): IRRITABILITY;Practice ID: 0001 Immunizations Immunization Administration Dates Next Due Influenza, Quadrivalent, Rec ombinant, Egg Free, Preservative Free, Intramuscular 05/28/2019 Influenza, Quadrivalent, Spl it, Preservative Free, Intramuscular 07/01/2020,06/19/2018 Influenza, Trivalent, IM (MDV) 06/05/2013,2011,05/28/2011 Influenza, Trivalent, Preser vative Free, Intramuscular 05/16/2016 Influenza, Unspecified 06/03/2015 Tdap 02/16/2017 ZOSTER LIVE 02/16/2017 ZOSTER Recombinant 07/28/2017 Social History Tobacco Use Types Packs/Day Years Used Date Smoking Tobacco: Former Cigarettes 0.1 20 1 982 - 2009 Smokeless Tobacco: Never Tobacco Cessation:Counseling Given: Not Answered AUDIT-C Answer Date Recorded Q1: How often do you have a drink containing alc ohol? Never 03/23/2023 Average Number of Drinks Not on file 023 Q3: How often do you have si x or more drinks on one occasion? Never 03/23/2023 Personal Safety Answer Date Recorded Have you ever been in or are you currently in a harmful physical or emotional relationship or is someone making you feel afraid or unsafe? Denies 03/24/2023 Comments No Sex and Gender Information Value Date Recorded Sex Assigned at Not on file Legal Sex Female 7:17 PM [employer] Gender Identity Female 05/22/2024 10:23 AM CDT Sexual Orientation Straight 05/22/2024 10 :24 AM CDT Occupation Industry Job Start Date Job End Date Retired Not on file Not on file Not on file Last Filed Vital Signs Vital Sign Reading Time Taken Comments Blood Pressure 138/70 11/29/2024 11:02 AM CDT Pulse 66 11/29/2024 11:02 AM CDT Temperature 37.1 C (98.8 F) 03/27/2023 7:44 AM CDT Respiratory Rate 18 11/29/2024 11:02 AM CDT Oxygen Saturation 98% 10/11/2024 1:11 PM [employer] Inhaled Oxygen Concentration - - Weight 59 kg (130 lb) 11/29/2024 11:02 AM CDT Height 149.9 cm (4' 11 ) 10/11/2024 1:11 PM [employer] Body Mass Index 26.26 10/11/2024 1:11 PM [employer] Plan of Treatment Upcoming Encounters Date Type Department Care Team (Late st Contact Info) Description 05/27/2025 9:30 AM CDT Hospital Encounter [address] [address] Linus Samuels DO [address] [facility] [address] [place] [address] 05/27/2025 9:30 AM CDT - 05/27/2025 10:00 AM CDT Surgery [address] [address] Linus Samuels, [address] [facility] [address] [place] [address] COLONOSCOPY Scheduled Procedures Name Priority Associated Diagnoses Date/Ti me COLONOSCOPY Screening for colon cancer 05/27/2025 9:30 AM CDT Medical Devices Implanted Type [facility]ist[facility] Teacher Device Identifier Shelf Expiration Date Model / Serial / Lot [employer] Strata Ii Csf Programmable Flow Control Ball Spring Mechanism [id number] - [id number] Implanted:Qty: 1 on 09/07/2022 by Michael Zafar MD at [facility] Right: Brain [employer] 03/30/2025 [id number] / / [id number] Procedures Procedure Name Priority Date/Time Associated Diagnosis Comments CT HEAD WO CONTRAST Schedule Routine, Read Routine (OP Routine) 10/11/2024 12:33 PM [employer] Normal pressure hydrocephalus (HCC) SDH (subdural hematoma) (HCC) from Last 3 Months Results * CT Head WO Contrast (10/11/2024 12:33 PM [employer]) Anatomical Region Laterality Modality Head and Neck N/A Computed Tomogra phy 10/11/2024 1:19 PM [employer] Impressions 10/11/2024 1:19 PM [employer] 1. Stable chronic shunted hydrocephalus. Electronically signed by: Gurwinder Bradley MD Narrative 10/11/2024 1:19 PM [employer] EXAMINATION: CT head without contrast HISTORY: Epidural hemorrhage; chronic hydrocephalus TECHNIQUE: CT of the head was performed with images acquired from skull base to vertex without intravenous contrast. COMPARISON: 03/15/[address] FINDINGS: Parenchyma: Again noted are findings of a right parietal shunt catheter with its tip terminating along the roof of the dilated right lateral ventricle. No hemorrhage, mass or mass effect is present. Ventricles and midline: Stable chronic ventriculomegaly is again noted. No midline shift. Scalp and bony structures: There is no acute skull fracture or significant scalp edema/hematoma. No pathologic lytic or sclerotic bone lesions are present. Chronic left paramedian frontal bone dyan hole. Orbits, paranasal sinuses and mastoids: No acute intraorbital abnormality. Visualized paranasal sinuses demonstrate no significant mucosal disease or opacification. Mastoids and tympanic cavities demonstrate no significant opacification. Procedure Note Gurwinder Bradley MD - 10/11/2024 EXAMINATION: CT head without contrast HISTORY: Epidural hemorrhage; chronic hydrocephalus TECHNIQUE: CT of the head was performed with images acquired from skull base to vertex without intravenous contrast. COMPARISON: 03/15/[address] FINDINGS: Parenchyma: Again noted are findings of a right parietal shunt catheter with its tip terminating along the roof of the dilated right lateral ventricle. No hemorrhage, mass or mass effect is present. Ventricles and midline: Stable chronic ventriculomegaly is again noted. No midline shift. Scalp and bony structures: There is no acute skull fracture or significant scalp edema/hematoma. No pathologic lytic or sclerotic bone lesions are present. Chronic left paramedian frontal bone dyan hole. Orbits, paranasal sinuses and mastoids: No acute intraorbital abnormality. Visualized paranasal sinuses demonstrate no significant mucosal disease or opacification. Mastoids and tympanic cavities demonstrate no significant opacification. IMPRESSION: 1. Stable chronic shunted hydrocephalus. Electronically signed by: Gurwinder Bradley MD Michael Zafar MD IMG CT PROCEDURES Final Resul t from Last [address] [place] [address] MEDICARE GROUP ADMIN[employer]RATORS [place] Member Subscriber Plan / Payer ( fective 2022-Present) Name:Faviola Hampton R Relation to Subscriber:Spouse Name:SHAYNA HAMPTON Date of :1952 (Home) Address: [address] [place] [address] [place] [address] Payer ID:[id number] Group ID:[id number] Type:COMMERCIAL Address: [facility] [address] [place] [address] [place] [address] MEDICARE GROUP AD[employer] [place] Member Subscriber Plan / Payer ( fective 2021-Present) Name:Faviola Hampton R Relation to Subscriber:Self Name:Faviola Hampton Payer ID:[id number] Group ID:[id number] Type:COMMERCIAL Address: [address] [address] [place] [address] MEDICARE [employer] [place] Member Subscriber Plan / Payer (Ef fective 2021-Present) Name:Faviola Hampton Relation to Subscriber:Self Name:Faviola Hampton Payer ID:[id number] Group ID:[id number] Type:COMMERCIAL Address: [address] [address] [place] [address] Advance Directives For more information, please contact: [phone] * Full Code (Latest Code Status on File) Date Activated Date Inactivated Comments 03/24/2023 12:55 PM 03/27/2023 3:45 PM * Full Code Date Activated Date Inactivated Comments 03/23/2023 5:21 PM 03/24/2023 12:55 PM Care Teams Horse Groomer Relationship Specialty Start Date End Date Domingo Hebert MD PCP - General Family Medicine 03/14/22 Cecy Brewer, PT Physical Therapist Physical Therapy 11/07/24 Cecy Brewer, PT Physical Therapist Physical Therapy 11/07/24
--- OUTSIDE RECORDS SUMMARY | 2024-12-17 10:21 | XMS_ITS | Clinical Summary ---
Author Organization [facility] B Address [address] [place] [address] Care Team Providers Care Cloth Framer Name Role Phone Domingo Hebert MD Primary Care Provider [phone] Cecy Brewer PT Unavailable Unavailabl e Cecy Brewer PT Unavailable Unavailabl e Allergies No known active allergies Medications levETIRAcetam [...] irritable 01/03/2011 Overview (07/02/2024): IRRITABILITY;Practice ID: [id number] Encounters Date Type Department Care Team Description 12/12/2024 10:00 AM CDT Therapy [facility] Physical Therapy [address] [place] [id number] Cecy Brewer, PT Gait disorder (Primary Dx) 12/12/2024 9:15 AM CDT Therapy [facility] Speech Therapy [address] [place] [phone] Patrica Alford, GLOBAL LOGISTICS ANALYST Cognitive communication deficit (Primary Dx); Hydrocephalus managed with CUFF MAKER shunt (HCC) 12/09/2024 10:45 AM CDT Therapy [facility] Speech Therapy [address] [place] [id number] Patrica Alford, GLOBAL LOGISTICS ANALYST Cognitive communication deficit (Primary Dx) 12/09/2024 10:00 AM CDT Therapy [facility] Physical Therapy [address] [place] [phone] Citlalli Michael, PLANT EQUIPMENT ENGINEER Gait disorder (Primary Dx) 12/05/2024 10:00 AM CDT Therapy [facility] Speech Therapy [address] [place] [phone] Patrica Alford, GLOBAL LOGISTICS ANALYST Cognitive communication deficit (Primary Dx) 12/05/2024 9:15 AM CDT Therapy [facility] Physical Therapy [address] [place] [phone] Citlalli Michael, PLANT EQUIPMENT ENGINEER Gait disorder (Primary Dx) 12/02/2024 10:45 AM CDT Therapy [facility] Speech Therapy [address] [place] [phone] Patrica Alford, GLOBAL LOGISTICS ANALYST Cognitive communication deficit (Primary Dx) 12/02/2024 10:00 AM CDT Therapy [facility] Physical Therapy [address] [place] [address] [phone] Citlalli Michael, PLANT EQUIPMENT ENGINEER Gait disorder (Primary Dx) 11/29/2024 11:00 AM CDT Office Visit [facility] Orthopaedic Surgery [address] [place] [address] [address]th [place] [address] [place] [address] Jaqui Dumont NP Gait disorder (Primary Dx); Post-traumatic hydrocephalus (HCC); Right foot drop; Impaired functional mobility, balance, gait, and endurance; Cerebral palsy with spastic diplegia (HCC); Hydrocephalus managed with CUFF MAKER shunt (HCC) 11/28/2024 10:45 AM CDT Therapy [facility] Physical Therapy [address] [place] [phone] Citlalli Michael, PLANT EQUIPMENT ENGINEER Gait disorder (Primary Dx) 11/28/2024 10:00 AM CDT Therapy [facility] Speech Therapy [address] [place] [address] [id number] Patrica Alford, GLOBAL LOGISTICS ANALYST Cognitive communication deficit (Primary Dx) 11/25/2024 10:00 AM CDT Therapy [facility] Physical Therapy [address] [place] [address] [phone] Citlalli Michael, PLANT EQUIPMENT ENGINEER Gait disorder (Primary Dx) 11/25/2024 9:15 AM CDT Therapy [facility] Speech Therapy [address] [place] [phone] Patrica Alford, GLOBAL LOGISTICS ANALYST Cognitive communication deficit (Primary Dx) 11/21/2024 10:45 AM CDT Therapy [facility] Speech Therapy [address] [place] [phone] Patrica Alford, GLOBAL LOGISTICS ANALYST Cognitive communication deficit (Primary Dx) 11/21/2024 10:00 AM CDT Therapy [facility] Physical Therapy [address] [place] [address] [phone] Citlalli Micheal, PLANT EQUIPMENT ENGINEER Gait disorder (Primary Dx) 11/18/2024 10:00 AM CDT Therapy [facility] Physical Therapy [address] [place] [address] [phone] Citlalli Michael, PLANT EQUIPMENT ENGINEER Gait disorder (Primary Dx) 11/18/2024 9:15 AM CDT Therapy [facility] Speech Therapy [address] [place] [phone] Patrica Alford, GLOBAL LOGISTICS ANALYST Cognitive communication deficit (Primary Dx) 11/07/2024 12:00 PM CDT Therapy [facility] Speech Therapy [address] [place] [phone] Patrica Alford, GLOBAL LOGISTICS ANALYST Cognitive communication deficit (Primary Dx) 11/07/2024 11:00 AM CDT Therapy [facility] Physical Therapy [address] [place] [phone] Cecy Brewer PT Gait disorder (Primary Dx); Impaired functional mobility, balance, gait, and endurance; Hydrocephalus managed with CUFF MAKER shunt (HCC); Cerebral palsy with spastic diplegia (HCC); Right foot drop; Post-traumatic hydrocephalus (HCC) 10/30/2024 2:00 PM ETL PROGRAMMER Therapy [facility] Speech Therapy [address] [place] [address] Patrica Alford, SARAH Cognitive communication deficit (Primary Dx); Hydrocephalus managed with CUFF MAKER shunt (HCC); Post-traumatic hydrocephalus (HCC) 10/30/2024 Plan of Care Documentation [facility] Speech Therapy [address] [place] [address] 10/22/2024 Telephone [facility] [place] [address] [address] [facility] [address] [place] [phone] Leah Campbell LPN 10/21/2024 Orders Only [facility] Orthopaedic Surgery [address] [facility] [address]th [place] [address] [place] [address] Jaqui Dumont NP Post-traumatic hydrocephalus (HCC) (Primary Dx); Gait disorder; Impaired functional mobility, balance, gait, and endurance; Hydrocephalus managed with CUFF MAKER shunt (HCC); Cerebral palsy with spastic diplegia (HCC); Right foot drop 10/18/2024 Orders Only [facility] with [facility] [address] [place] [address] Danial Siddiqui PA NPH (normal pressure hydrocephalus) (HCC) (Primary Dx) 10/11/2024 2:30 PM ETL PROGRAMMER Office Visit [facility] [address] [facility] [place] [address] Danial Siddiqui PA NPH (normal pressure hydrocephalus) (HCC) (Primary Dx) 10/11/2024 11:58 AM ETL PROGRAMMER - 10/11/2024 11:59 PM ETL PROGRAMMER Hospital Encounter [facility] - Imaging [address] [place] [address] Normal pressure hydrocephalus (HCC); SDH (subdural hematoma) (HCC) Discharge Disposition: Discharge to home or self care from Last 3 Months Immunizations Immunization Administration Dates Next Due Influenza, Quadrivalent, Rec ombinant, Egg Free, Preservative Free, Intramuscular 05/28/2019 Influenza, Quadrivalent, Spl it, Preservative Free, Intramuscular 07/01/2020,06/19/2018 Influenza, Trivalent, IM (MDV) 06/05/2013,2011,05/28/2011 Influenza, Trivalent, Preser vative Free, Intramuscular 05/16/2016 Influenza, Unspecified 06/03/2015 Tdap 02/16/2017 ZOSTER LIVE 02/16/2017 ZOSTER Recombinant 07/28/2017 Surgical History Surgery Date Site/Laterality Comments APPENDECTOMY TUBAL LIGATION 08/28/1973 - 08/27/1974 CUFF MAKER SHUNT INSERTION 08/28/2022 - 09/27/2022 Right Medical History Medical History Date Comments Chronic kidney disease Anemia Family History Medical History Relation Name Comments Aneurysm Father Clotting disorder Father Hypertension Mother Stroke Mother Cancer Sister Heart attack Sister Hypertension Sister Relation Name Status Comments Father Mother Sister Social History Tobacco Use Types Packs/Day Years [...] on file Legal Sex Female 7:17 PM ETL PROGRAMMER Gender Identity Female 05/22/2024 10:23 AM CDT Sexual Orientation Straight 05/22/2024 10 :24 AM CDT Occupation Industry Job Start Date Job End Date Retired Not on file Not on file Not on file Obstetrics History Last Filed Vital Signs Vital Sign Reading Time Taken Comments Blood Pressure 138/70 11/29/2024 11:02 AM CDT Pulse 66 11/29/2024 11:02 AM CDT Temperature 37.1 C (98.8 F) 03/27/2023 7:44 AM CDT Respiratory Rate 18 11/29/2024 11:02 AM CDT Oxygen Saturation 98% 10/11/2024 1:11 PM ETL PROGRAMMER Inhaled Oxygen Concentration - - Weight 59 kg (130 lb) 11/29/2024 11:02 AM CDT Height 149.9 cm (4' 11 ) 10/11/2024 1:11 PM ETL PROGRAMMER Body Mass Index 26.26 10/11/2024 1:11 PM ETL PROGRAMMER Plan of Treatment Upcoming Encounters Date Type Department Care Team (Late st Contact Info) Description 05/27/2025 9:30 AM CDT Hospital Encounter [address] [address] Linus Samuels DO [address] [facility] [address] 05/27/2025 9:30 AM CDT - 05/27/2025 10:00 AM CDT Surgery [address] [address] Linus Samuels DO [address] [facility] [address] [place] [address] COLONOSCOPY Scheduled Procedures Name Priority Associated Diagnoses Date/Ti me COLONOSCOPY Screening for colon cancer 05/27/2025 9:30 AM CDT Health Maintenance Due Date Last Done Comments Colon Cancer Screening-Colonoscopy 1955 Depression Screening 1955 Hepatitis C Screening 1955 Osteoporosis Screening-Bone Density Scan 1955 Hepatitis B Screening 1973 Pneumococcal vaccine 65+ (1 of 1 - PCV) 2005 Zoster Vaccine (3 of 3) 09/22/2017 07/28/2017, 02/16 Well Visit 65+ 2020 Breast Cancer Screening-Mammogram 07/29/2021 020 Fall Risk Assessment 03/27/2024 03/27/2023 Covid-19 Vaccine (2023-2 5 season) 2024 01/18/2022, 06/26/2021, 11/17/2020, Additional history exists Influenza Vaccine (Season Ended) 2025 07/01/2020, 05/28/2019, 06/19/2018, Additional history exists DTaP/Tdap/Td Vaccine (2 - Td or Tdap) 02/16/2027 02/16/2017 Medical Devices Implanted Type Area Match Maker Device Identifier Shelf Expiration Date Model / Serial / Lot [employer] Strata Ii Csf Programmable Flow Control Ball Spring Mechanism [id number] - [id number] Implanted:Qty: 1 on 09/07/2022 by Michael Zafar MD at [facility] Right: Brain [employer] 03/30/2025 [id number] / / [id number] Procedures Procedure Name Priority Date/Time Associated Diagnosis Comments CT HEAD WO CONTRAST Schedule Routine, Read Routine (OP Routine) 10/11/2024 12:33 PM ETL PROGRAMMER Normal pressure hydrocephalus (HCC) SDH (subdural hematoma) (HCC) from Last 3 Months Results * CT Head WO Contrast (10/11/2024 12:33 PM ETL PROGRAMMER) Anatomical Region Laterality Modality Head and Neck N/A Computed Tomogra phy 10/11/2024 1:19 PM ETL PROGRAMMER Impressions 10/11/2024 1:19 PM ETL PROGRAMMER 1. Stable chronic shunted hydrocephalus. Electronically signed by: Gurwinder Bradley MD Narrative 10/11/2024 1:19 PM ETL PROGRAMMER EXAMINATION: CT head without contrast HISTORY: Epidural [...] Resul t from Last 3 Months Insurance [employer] [place] Member Subscriber Plan / Payer (Ef fective 2022-Present) Name:Faviola Hampton Relation to Subscriber:Spouse Name:SHAYNA HAMPTON Date of :1952 (Home) Address: [facility] [address] Payer ID:[id number] Group ID:[id number] Type:COMMERCIAL Address: [address] [address] [place] [address] MEDICARE GROUP [facility] Member Subscriber Plan / Payer (Ef fective 2021-Present) Name:Faviola Hampton R Relation to Subscriber:Self Name:Faviola Hampton Payer ID:[id number] Group ID:[id number] Type:COMMERCIAL Address: [facility] [address] [place] [address] MEDICARE [employer] [place] Member Subscriber Plan / Payer (Ef fective 2021-Present) Name:Faviola Hampton Relation to Subscriber:Self Name:Faviola Hampton Payer ID:[id number] Group ID:[id number] Type:COMMERCIAL Address: [id number] [place] [address] Advance Directives For more information, please contact: [phone] * Full Code (Latest Code Status on File) Date Activated Date Inactivated Comments 03/24/2023 12:55 PM 03/27/2023 3:45 PM * Full Code Date Activated Date Inactivated Comments 03/23/2023 5:21 PM 03/24/2023 12:55 PM Care Teams Cloth Framer Relationship Specialty Start Date End Date Domingo Hebert MD PCP - General Family Medicine 03/14/22 Cecy Brewer, PT Physical Therapist Physical Therapy 11/07/24 Cecy Brewer, PT Physical Therapist Physical Therapy 11/07/24
== END 2024-12-17 09:21 | disposition home or self-care (01) ==
PROVIDERS: PCP Family Medicine; Visit Provider Family Medicine
DX: R92.8 Other abnormal and inconclusive findings on diagnostic imaging of breast (principal)
CPT/HCPCS: 76642; 77061; 77065; G0279